=== PATIENT | male | born 1965 | race Caucasian/White ===

== ENCOUNTER → 2020-08-28 13:29 | Outpatient (BNVA) | payer OTHER, SELFPAY | PROVIDERS: PCP Internal Medicine; Referring Provider Internal Medicine; Visit Provider Internal Medicine Cardiovascular Disease | DX: I21.4 Non-ST elevation (NSTEMI) myocardial infarction (principal); Z98.62 Peripheral vascular angioplasty status | CPT/HCPCS: 99202 ==

== ENCOUNTER → 2020-11-27 10:22 | Outpatient (BNVA) | payer OTHER, SELFPAY | PROVIDERS: PCP Internal Medicine; Visit Provider Internal Medicine Cardiovascular Disease | DX: I21.4 Non-ST elevation (NSTEMI) myocardial infarction (principal); Z98.62 Peripheral vascular angioplasty status | CPT/HCPCS: 99212 ==

== ENCOUNTER → 2021-06-04 09:02 | Outpatient (BNVA) | payer OTHER, SELFPAY | PROVIDERS: PCP Internal Medicine; Referring Provider Internal Medicine; Visit Provider Internal Medicine Cardiovascular Disease | DX: I21.4 Non-ST elevation (NSTEMI) myocardial infarction (principal); Z98.62 Peripheral vascular angioplasty status | CPT/HCPCS: 93005; 99212 ==

== ENCOUNTER → 2022-01-21 15:11 | Outpatient (BNVA) | payer OTHER, SELFPAY | PROVIDERS: PCP Internal Medicine; Referring Provider Internal Medicine; Visit Provider Internal Medicine Cardiovascular Disease | DX: I20.8 Other forms of angina pectoris (principal); I25.2 Old myocardial infarction; Z98.62 Peripheral vascular angioplasty status | CPT/HCPCS: 99212 ==

== ENCOUNTER → 2022-07-29 09:17 | Outpatient (BNVA) | payer OTHER, SELFPAY | PROVIDERS: PCP Internal Medicine; Referring Provider Internal Medicine; Visit Provider Internal Medicine Cardiovascular Disease | DX: I20.8 Other forms of angina pectoris (principal); I25.2 Old myocardial infarction; Z98.62 Peripheral vascular angioplasty status | CPT/HCPCS: 99212 ==

== ENCOUNTER 2023-07-21 09:19 | Outpatient (AMB) | payer MEDICAID, SELFPAY ==
--- NOTE | 2023-07-21 09:22 | A.OFFVIS_ITS ---
Intake Vital Signs 07/21/23 09:24 Height 5 ft 8 in Weight 209 lb 7.026 oz BMI 31.8 BP 120/60 Blood Pressure Location Lt brachial Position Sitting Pulse 63 Intake Visit Reasons: 1 yr f/u Intake Note: 1 yr f/up patient its fine Manager Consumer Insights Required: No Accompanied by: Daughter Allergies No Known Allergies [No Known Allergies*] Allergy (Verified 07/21/23 09:26) Medication List - Last Reconciled 07/21/23 by Hilario Galindo MD allopurinol 300 mg PO DAILY aspirin 81 mg PO DAILY ezetimibe 10 mg PO DAILY 90 days glipizide 10 mg PO DAILY lisinopril 5 mg PO DAILY metformin 1,000 mg PO BID metoprolol tartrate 25 mg PO BID rosuvastatin 40 mg PO DAILY HPI HPI Comments History of Present Illness Details 57-year-old gentleman who is presenting for follow-up. He previously had RCA PCI for NSTEMI. He has been doing well. Has no chest pain or shortness of breath. Daughter accompanied him who acted as transformer assembler. On follow-up continues issues. Discussed about long-term to patient and daughter wish to continue Plavix. He is taking Zetia and rosuvastatin. He did not have lipid panel and I have requested it. 07/21/23: He returns for follow-up. He had repeat lipid panel after starting ezetimibe in July 2022. Total cholesterol was 134, triglycerides 124, HDL 38, LDL 71 and non HDL 96. On follow-up he has stop the Plavix and is currently taking aspirin only. He has no chest discomfort shortness of breath. Taking medications regularly. Blood pressure control is good. EKG is normal. [facility] Surgical History History of cardiac cath Family History Father No problems noted. Mother No problems noted. Social History Alcohol intake: current Alcohol intake frequency: a few times a month Alcohol type: hard liquor Patient Tobacco Use Status: Former Tobacco user Quit Date: 2019 Smoked: 10 +/- Physical Exam Vital Signs: BMI result Body Mass Index 31.8 GENERAL APPEARANCE: in no acute distress, pleasant. NECK: no carotid bruit, no jugular venous distention. SKIN: no suspicious lesions, warm and dry. HEART: no murmurs, regular rate and rhythm. LUNGS: clear to auscultation bilaterally. ABDOMEN: soft, nontender. EXTREMITIES: no edema. PERIPHERAL PULSES: equal. NEUROLOGIC: No gross deficits, AAO X 3 Office Procedures EKG Details: Sinus rhythm 63 beats per minute, normal axis, normal ECG, QTC 460 milliseconds. [id number], Complete Assessment & Plan Assessment & Plan (1) Stable angina: Code(s): I20.8 - Other forms of angina pectoris Plan Pleasant 57 gentleman is here for follow-up. He has stable angina. Blood pressure control is good. He is taking aspirin and he has stop taking Plavix at this stage. No side effects from aspirin. Cholesterol is well controlled with rosuvastatin 40 mg and ezetimibe 10 mg daily. Follow-up with us in 1 year. Thank you for allowing me to participate in the care of your patient. Please feel free to contact me if you have any questions. Coding Level of Care Code Est Pt Level 4 (31099) Diagnoses Stable angina I20.8 CPT Codes EKG - CPT: 57180-[id number], Complete ([id number])
[2023-07-21 09:24] VITALS: BP 120/60; PULSE 63; BMI 31.8
== END 2023-07-21 09:50 | disposition home or self-care (01) ==
PROVIDERS: Visit Provider Internal Medicine Cardiovascular Disease
DX: I20.8 Other forms of angina pectoris (principal)
CPT/HCPCS: 93010; 99214

== ENCOUNTER → 2023-07-21 09:19 | Outpatient (BNVA) | payer OTHER, SELFPAY | PROVIDERS: Visit Provider Internal Medicine Cardiovascular Disease | DX: I20.89 Other forms of angina pectoris (principal) | CPT/HCPCS: 93005; 99212 ==

== ENCOUNTER 2024-07-26 09:17 | Outpatient (AMB) | payer OTHER, SELFPAY ==
--- NOTE | 2024-07-26 09:18 | MHC.OFFVIS ---
Vital Signs 07/26/24 09:19 Height 5 ft 8 in Weight 206 lb 5.643 oz BMI 31.4 BP 110/70 Blood Pressure Location Lt brachial Position Sitting Pulse 69 Pulse Source Monitor Intake Visit Reasons: 1 yr f/up Intake Note: 1 yr f/up Remote Computer Terminal Operator Required: No Remote Computer Terminal Operator Services: Remote Computer Terminal Operator Offered & Declined Remote Computer Terminal Operator Name: daughter Accompanied by: Daughter Allergies No Known Allergies [No Known Allergies*] Allergy (Verified 07/21/23 09:26) Medication List - Last Reconciled 07/26/24 by Hilario Galindo MD allopurinol 300 mg PO DAILY aspirin 81 mg PO DAILY ezetimibe 10 mg PO DAILY 90 days glipizide 10 mg PO DAILY lisinopril 5 mg PO DAILY metformin 1,000 mg PO BID metoprolol tartrate 25 mg PO BID rosuvastatin 40 mg PO DAILY HPI Comments Details: 58-year-old gentleman who is presenting for follow-up. He previously had RCA PCI for NSTEMI. He has been doing well. Has no chest pain or shortness of breath. Daughter accompanied him who acted as wind turbine design engineer. On follow-up continues issues. Discussed about long-term to patient and daughter wish to continue Plavix. He is taking Zetia and rosuvastatin. He did not have lipid panel and I have requested it. 07/21/23: He returns for follow-up. He had repeat lipid panel after starting ezetimibe in July 2022. Total cholesterol was 134, triglycerides 124, HDL 38, LDL 71 and non HDL 96. On follow-up he has stop the Plavix and is currently taking aspirin only. He has no chest discomfort shortness of breath. Taking medications regularly. Blood pressure control is good. EKG is normal. 07/26/2024: He is here for follow-up. He is accompanied by his daughter. He continues to do well without any exertional issues. In particular no chest discomfort shortness of breath. I reviewed his angiogram from 2019 and is not have any significant disease in other vessels. RCA obviously was culprit and was 100% occluded and was treated with drug-eluting stent at that time. [facility] Surgical History History of cardiac cath Family History Father No problems noted. Mother No problems noted. Social History Alcohol intake: current Alcohol intake frequency: a few times a month Alcohol type: hard liquor Patient Tobacco Use Status: Former Tobacco user Years Smoked: 10 +/- Review of Systems Const Denies chills, Denies fatigue, Denies fever(s), Denies frequent falls, Denies weakness, Denies weight gain and Denies weight loss ENT Denies dizziness Card Denies chest pain, Denies leg edema, Denies lightheadedness, Denies palpitations, Denies dyspnea and Denies dyspnea on exertion Resp Denies cough, Denies dyspnea and Denies dyspnea on exertion GI Denies hematochezia Musc Denies abnormal gait, Denies muscle weakness, Denies numbness, Denies radiating pain into limb and Denies tingling Neuro Denies abnormal gait, Denies dizziness, Denies frequent falls, Denies numbness, Denies tingling and Denies weakness Endo Denies fatigue and Denies palpitations Physical Exam Vital Signs: Last Vital Signs Pulse 69 07/26/24 09:19 BP 110/70 07/26/24 09:19 BMI result Body Mass Index 31.4 GENERAL APPEARANCE: in no acute distress, pleasant. NECK: no carotid bruit, no jugular venous distention. SKIN: no suspicious lesions, warm and dry. HEART: no murmurs, regular rate and rhythm. LUNGS: clear to auscultation bilaterally. ABDOMEN: soft, nontender. EXTREMITIES: no edema. PERIPHERAL PULSES: equal. NEUROLOGIC: No gross deficits, AAO X 3 Office Procedures EKG Details: Sinus rhythm 69 beats per minute, normal axis, poor R-wave progression and can not rule out anterior infarct, QTC 458 milliseconds. [id number], Complete Assessment & Plan Assessment & Plan (1) Stable angina: Code(s): I20.8 - Other forms of angina pectoris Category: Medical Plan Pleasant 58-year-old Eritrean speaking gentleman who is here for follow-up. He has stable angina. Blood pressure control is good. He is on aspirin 81 mg daily. He is on rosuvastatin 40 mg and ezetimibe 10 mg daily. Last LDL cholesterol was 71 in July 2022. He should have fasting lipid panel once a year. Follow-up with us in 1 year. Thank you for allowing me to participate in the care of your patient. Please feel free to contact me if you have any questions. Coding Level of Care Code Est Pt Level 4 (17049) Diagnoses Stable angina I20.8 CPT Codes EKG - CPT: 96485-[id number], Complete ([id number])
[2024-07-26 09:19] VITALS: BP 110/70; PULSE 69; BMI 31.4
== END 2024-07-26 09:36 | disposition home or self-care (01) ==
PROVIDERS: PCP Internal Medicine; Visit Provider Internal Medicine Cardiovascular Disease
DX: I20.89 Other forms of angina pectoris (principal)
CPT/HCPCS: 93010; 99214

== ENCOUNTER → 2024-07-26 09:17 | Outpatient (BNVA) | payer OTHER, SELFPAY | PROVIDERS: PCP Internal Medicine; Visit Provider Internal Medicine Cardiovascular Disease | DX: I20.89 Other forms of angina pectoris (principal) | CPT/HCPCS: 93005; 99212 ==

== ENCOUNTER 2025-07-27 09:17 | Outpatient (AMB) | payer OTHER, SELFPAY ==
--- NOTE | 2025-07-27 09:27 | A.OFFVIS_ITS ---
Vital Signs 07/27/25 09:30 Height 5 ft 8 in Weight 206 lb 12.697 oz BMI 31.4 BP 90/64 Blood Pressure Location Lt brachial Position Sitting Pulse 60 Pulse Source Monitor Intake Visit Reasons: 1 yr f/up Intake Note: 1 yr f/up- Friday episode of chest pain, pt could life his left arm. Construction Site Crossing Guard Required: Yes Construction Site Crossing Guard Services: Construction Site Crossing Guard Offered & Declined Construction Site Crossing Guard Name: daughter Accompanied by: Daughter Allergies No Known Allergies (No Known Allergies*) Allergy (Verified 07/21/23 09:26) Medication List - Last Reconciled 07/27/25 by Hilario Galindo MD allopurinol 300 mg PO DAILY aspirin 81 mg PO DAILY ezetimibe 10 mg PO DAILY 90 days glipizide 10 mg PO DAILY lisinopril 5 mg PO DAILY metformin 1,000 mg PO BID metoprolol tartrate 25 mg PO BID rosuvastatin 40 mg PO DAILY HPI Comments Details: 59-year-old gentleman who is presenting for follow-up. He previously had RCA PCI for NSTEMI. He has been doing well. Has no chest pain or shortness of breath. Daughter accompanied him who acted as sap architect. On follow-up continues issues. Discussed about long-term to patient and daughter wish to continue Plavix. He is taking Zetia and rosuvastatin. He did not have lipid panel and I have requested it. 07/21/23: He returns for follow-up. He had repeat lipid panel after starting ezetimibe in July 2022. Total cholesterol was 134, triglycerides 124, HDL 38, LDL 71 and non HDL 96. On follow-up he has stop the Plavix and is currently taking aspirin only. He has no chest discomfort shortness of breath. Taking medications regularly. Blood pressure control is good. EKG is normal. 07/26/2024: He is here for follow-up. He is accompanied by his daughter. He continues to do well without any exertional issues. In particular no chest discomfort shortness of breath. I reviewed his angiogram from 2019 and is not have any significant disease in other vessels. RCA obviously was culprit and was 100% occluded and was treated with drug-eluting stent at that time. 07/27/2025: He is here for follow-up. On Friday he had left-sided chest pain and left arm discomfort. This lasted for few hours and resolved. He has not had any recurrent episodes since then. His EKGs showing inferior T-wave changes which are old. He is saying chest pain has resolved completely. I reviewed his angiogram and he had codominant system with occluded right coronary artery as presentation for ACS which was treated with drug-eluting stent. He had 30% mid circumflex stenosis in 2020. [facility] Surgical History History of cardiac cath Family History Father No problems noted. Mother No problems noted. Social History Alcohol intake: current Alcohol intake frequency: a few times a month Alcohol type: hard liquor Patient Tobacco Use Status: Former Tobacco user Years Smoked: 10 +/- Review of Systems Const Denies chills, Denies fatigue, Denies fever(s), Denies frequent falls, Denies weakness, Denies weight gain and Denies weight loss ENT Denies dizziness Card Reports chest pain, Denies leg edema, Denies lightheadedness, Denies palpitations, Denies dyspnea and Denies dyspnea on exertion Resp Denies cough, Denies dyspnea and Denies dyspnea on exertion GI Denies hematochezia Musc Denies abnormal gait, Denies muscle weakness, Denies numbness, Denies radiating pain into limb and Denies tingling Neuro Denies abnormal gait, Denies dizziness, Denies frequent falls, Denies numbness, Denies tingling and Denies weakness Endo Denies fatigue and Denies palpitations Physical Exam Vital Signs: Last Vital Signs Pulse 60 07/27/25 09:30 BP 90/64 07/27/25 09:30 BMI result Body Mass Index 31.4 GENERAL APPEARANCE: in no acute distress, pleasant. NECK: no carotid bruit, no jugular venous distention. SKIN: no suspicious lesions, warm and dry. HEART: no murmurs, regular rate and rhythm. LUNGS: clear to auscultation bilaterally. ABDOMEN: soft, nontender. EXTREMITIES: no edema. PERIPHERAL PULSES: equal. NEUROLOGIC: No gross deficits, AAO X 3 Office Procedures EKG Details: Sinus rhythm 60 beats per minute, normal axis, nonspecific inferior T-wave change-old, QTC 424 milliseconds. [id number], Complete Assessment & Plan Assessment & Plan (1) Stable angina: Code(s): I20.8 - Other forms of angina pectoris Category: Medical Plan Pleasant 59 year gentleman who is here for follow-up. In 2019 presented with acute coronary syndrome and had an occluded right coronary artery which was treated with drug-eluting stent. He had 30-40% mid circumflex stenosis at that time. He is now presenting and is complaining of left-sided chest pain that happened on Friday. He is describing somewhat pleuritic pain as well as left arm pain. Currently there is no tenderness on the chest wall or pain with the left arm movement. Given his known history of coronary disease and residual 30 40% stenosis in the circumflex I have advised him to do exercise stress test. 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 We will arrange stress echocardiogram. Depending on that we will proceed for further testing. Continue same medications for now. Advised him to keep himself well hydrated. Manual blood pressure was 120/70. Thank you for allowing me to participate in the care of your patient. Please feel free to contact me if you have any questions. Orders: Orders CA echo stress exercise w con Today I20.8 - Other forms of angina pectoris Coding Level of Care Code Est Pt Level 4 (72376) Diagnoses Stable angina I20.8 CPT Codes EKG - CPT: 70796-[id number], Complete ([id number])
[2025-07-27 09:30] VITALS: BP 90/64; PULSE 60; BMI 31.4
== END 2025-07-27 09:57 | disposition home or self-care (01) ==
LOC: HO.HCS 09:17
PROVIDERS: PCP Internal Medicine; Visit Provider Internal Medicine Cardiovascular Disease
DX: I20.89 Other forms of angina pectoris (principal)
CPT/HCPCS: 93010; 99214

== ENCOUNTER → 2025-07-27 09:17 | Outpatient (BNVA) | payer OTHER, SELFPAY | PROVIDERS: PCP Internal Medicine; Visit Provider Internal Medicine Cardiovascular Disease | DX: I20.89 Other forms of angina pectoris (principal); Z87.891 Personal history of nicotine dependence | CPT/HCPCS: 93005; 99212 ==

== ENCOUNTER → 2025-08-01 10:42 | Outpatient (REF) | payer OTHER, SELFPAY ==
--- NOTE | 2025-08-01 10:47 | CA_ITS ---
Acquisition Time: 2025-08-01 11:01:12 Total Exercise Time: 00:10:30 Test Indications: CP LEFT ARM PAIN,Suspected Angina Medications: ALLOPURINOL ASA EZITIMIBE GLIPIZIDE LISINOPRIL METFORMIN METOPROLOL ROSUVASTATIN Protocol: WALLY Max HR: 137 BPM 84% of Pred: 163 BPM Max BP: 190/84 mmHG Max Work Load: 10.8 METS Exercise stress test with exercise 10 mins 30 secs of Wally Protocol held at Stage 3 with increased incline at 16%, achieving 86% MPHR, with reports of SOB, no chest pain, with isolated PACs, with normotensive response to exercise. Without any EKG changes meeting criteria for ischemia. In recovery, breathing improved. Echo images obatined by tech at rest and post peak exercise. Definity contrast utilized. Test reviewed with Dr. Galindo. Referred By: Hilario Galindo Electronically Signed By: Sumanth Pereira
== END ==
LOC: HO.CARD 10:42
PROVIDERS: Visit Provider Internal Medicine Cardiovascular Disease
DX: I20.89 Other forms of angina pectoris (principal)
CPT/HCPCS: 93350; Q9957

== ENCOUNTER → 2025-08-01 10:47 | Outpatient (BNV) | payer OTHER, SELFPAY | DX: I49.1 Atrial premature depolarization (principal); R06.02 Shortness of breath | CPT/HCPCS: 93016; 93018; 93350; 93352 ==